=== PATIENT | female | born 1960 | race Caucasian/White ===

== ENCOUNTER 2019-07-13 14:43 | Emergency (ER) | payer OTHER ==
[~2019-07-13] VITALS: Ht 142.2 cm; Wt 67.1 kg
[2019-07-13 14:53] VITALS: BP_SYST 156
[2019-07-13] MEDS ORDERED: ONDANSETRON HCL 4 MG/2 ML VIAL IVP ONE (15:00)
[2019-07-13] MEDS ORDERED: MORPHINE 4 MG/ML INJ. SYRINGE IVP ONE ×2 (15:00→16:15)
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
--- NOTE | 2019-07-13 15:03 | NUR ---
PATIENT TO ER #3 AND PLACED ON FULL CARDIAC MONITORING, SAO2, ABP
--- NOTE | 2019-07-13 15:10 | NUR ---
KENYON Fernandez at bedside examining patient.
--- NOTE | 2019-07-13 15:36 | NUR ---
PT RESPONDING WELL TO MEDICATION, FAMILY AT BEDSIDE.
[2019-07-13] MEDS ORDERED: KETOROLAC TROMETHAMINE 30 MG VIAL IVP ONE (16:15)
--- NOTE | 2019-07-13 16:30 | NUR ---
PT AMBULATED WITH ASSIST. C/O BACK SORENESS, TOLERATED MEDICATION WELL.
[2019-07-13 16:45] VITALS: BP_SYST 163
--- NOTE | 2019-07-13 16:45 | NUR ---
Patient given written and verbal discharge instructions and verbalizes understanding. ER MD discussed with patient the results and treatment provided. Patient in stable condition. ID arm band removed. IV catheter removed intact and dressing applied, no active bleeding. Rx of FLEXERIL AND IBUPROFEN given. Patient educated on pain management and to follow up with PMD. Pain Scale 3. Opportunity for questions provided and answered. Medication side effect fact sheet provided.
== END 2019-07-13 16:45 | disposition home or self-care (01) ==
LOC: SED 14:43
DX: S00.03XA Contusion of scalp, initial encounter (principal); R51 Headache; M54.2 Cervicalgia; M54.5 Low back pain; M54.6 Pain in thoracic spine; E78.5 Hyperlipidemia, unspecified; I10 Essential (primary) hypertension; E11.9 Type 2 diabetes mellitus without complications; Z90.710 Acquired absence of both cervix and uterus; W18.09XA Striking against other object with subsequent fall, initial encounter; Y93.39 Activity, other involving climbing, rappelling and jumping off; Y92.89 Other specified places as the place of occurrence of the external cause; Y99.8 Other external cause status
CPT/HCPCS: 70450; 72125; 72128; 72131; 96374; 96375; 96376; 99285; J1885; J2270; J2405